=== PATIENT | male | born 1985 | race African-American/Black ===

== ENCOUNTER 2016-11-01 07:52 | Emergency (ER) | payer SELFPAY ==
[2016-11-01] MEDS ORDERED: Morphine INJ* 4 MG/ML 1 ML CARPUJECT IV ONE (08:05)
[2016-11-01] MEDS ORDERED: Ondansetron INJ* 2 MG/ML VIAL IV ONE (08:05)
--- NOTE | 2016-11-01 08:12 | ED ---
Abdominal Pain/Male - HPI Summary HPI Summary: Pt is a 31 yo male presents by EMS with 3 days progressive abd pain, nausea and vomiting. Pt states vomit is green in color. Pt also reports diarrhea "like never before." Pt denies cp, sob, cough. Feels warm, no chills, no rash. No sick contacts. No headache, congestion. No OTC meds taken - History of Current Complaint Chief Complaint: EDAbdPain Stated Complaint: ABD PAIN Time Seen by Provider: 11/01/16 07:54 Hx Obtained From: Patient Onset/Duration: Gradual Onset, Lasting Days Timing: Constant Severity Initially: Moderate Severity Currently: Moderate Pain Intensity: 10 Location: Discrete At: LUQ, Epigastric Radiates: No Character: Cramping Aggravating Factor(s): Food Alleviating Factor(s): Nothing Associated Signs And Symptoms: Positive: Vomiting, Diarrhea. Negative: Fever, Cough, Chest Pain, Urinary Symptoms - Allergies/Home Medications Allergies/Adverse Reactions: Allergies Allergy/AdvReac Type Severity Reaction Status Date / Time Penicillins Allergy Hives Verified 11/01/16 09:43 PMH/Surg Hx/FS Hx/Imm Hx Previously Healthy: Yes Endocrine/Hematology History: Denies: Hx Anticoagulant Therapy Cardiovascular History: Denies: Hx Congenital Heart Disease Respiratory History: Denies: Hx Asthma Musculoskeletal History: Denies: Hx Arthritis Neurological History: Denies: Hx Headaches, Hx Migraine Psychiatric History: Denies: Hx Anxiety, Hx Depression Infectious Disease History: No Infectious Disease History: Denies: Traveled Outside the [place] in Last 30 Days - Family History Known Family History: Positive: Hypertension - Social History Alcohol Use: Occasionally Substance Use Type: Reports: None Smoking Status (MU): Light Every Day Tobacco Smoker Type: Cigarettes Review of Systems Constitutional: Negative Negative: Fever Eyes: Negative ENT: Negative Cardiovascular: Negative Negative: Chest Pain Respiratory: Negative Negative: Shortness Of Breath, Cough Positive: Abdominal Pain, Vomiting, Diarrhea, Nausea Genitourinary: Negative Skin: Negative Neurological: Negative Psychological: Normal All Other Systems Reviewed And Are Negative: Yes Physical Exam Triage Information Reviewed: Yes Vital Signs On Initial Exam: Initial Vitals Temp Pulse Resp BP Pulse Ox 100.9 F 95 20 138/118 100 11/01/16 07:54 11/01/16 07:54 11/01/16 07:54 11/01/16 07:54 11/01/16 07:54 Vital Signs Reviewed: Yes Appearance: Positive: Well-Appearing, No Pain Distress, Well-Nourished Skin: Positive: Warm, Skin Color Reflects Adequate Perfusion, Dry Head/Face: Positive: Normal Head/Face Inspection Eyes: Positive: Normal ENT: Negative: Pharynx normal - mmdry Neck: Positive: Supple, Nontender, No Lymphadenopathy Respiratory/Lung Sounds: Positive: Clear to Auscultation, Breath Sounds Present. Negative: Decreased Breath Sounds, Wheezes Cardiovascular: Positive: Normal, RRR. Negative: Murmur, Rub Abdomen Description: Negative: Nontender - + TTP epigastric, RUQ No guarding, no rebound decreased BS Bowel Sounds: Positive: Present Musculoskeletal: Positive: Normal Neurological: Positive: Normal, Sensory/Motor Intact, Alert, Oriented to Person Place, Time Psychiatric: Positive: Normal AVPU Assessment: Alert - [place] Coma Scale Best Eye Response: 4 - Spontaneous Best Motor Response: 6 - Obeys Commands Best Verbal Response: 5 - Oriented Diagnostics - Vital Signs Vital Signs Temp Pulse Resp BP Pulse Ox 11/01/16 07:54 100.9 F 95 20 138/118 100 - Laboratory Result Diagrams: 11/01/16 08:20 11/01/16 08:20 Lab Statement: Any lab studies that have been ordered have been reviewed, and results considered in the medical decision making process. Re-Evaluation - Re-Evaluation First Eval Re-Evaluation Time: 09:55 Change: Improved - Pt drinking contrast - states nausea improved Second Eval Re-Evaluation Time: 11:00 Change: Improved - Pt with episode of emesis in CT with IV contrast - states feels fine now Pt drank gingerale - requesting d/c Pt requesting cab assisted Will give urgent Rx for phenergan - onofre PCP referral Pt comfortable and in agreement with plan Abdominal Pain Fem Course/Dx - Course Assessment/Plan: Pt presents with 3 days n/v/d. Epigastric and RUQ pain on exam ; oral temp 98.9. Diff: gastroenteritis, gastritis, pancreastitis, dehydration. cbc/cmp/mag/lipase/urine. analgesia, antiemtic. CT ab/pelvis - Diagnoses Provider Diagnoses: Vomiting and diarrhea Discharge - Discharge Plan Condition: Improved Disposition: HOME Prescriptions: Promethazine TAB* [Phenergan TAB*] 12.5 mg PO Q6H PRN #10 tab PRN Reason: Nausea Patient Education Materials: Acute Nausea and Vomiting (ED) Referrals: No Primary Care Phys,NOPCP [Primary Care Provider] - [facility] [place] PHYSICIAN REFERRAL [Outside] Additional Instructions: - For the first 6 hours, eat and drink clears. (water, gatorade, popsicles, jello, soup broth) If you tolerate this, try bland food such as dry toast, scrambled eggs, crackers. Wait 24 hours before eating and drinking spicy food, acidic food, tomato based foods, fried food - Take medication as prescribed for nausea - contact the physician referral center to schedule a follow-up appointment. You may call the referral number, go to urgent care or the emergency with questions or concerns - increased vomiting, fever, chills, uncontrolled pain, other concern
[2016-11-01 08:36] LABS: Hematocrit 39 % (42-52); Hemoglobin 12.5 g/dl (14.0-18.0); Mean Corpuscular HGB Conc 32 g/dl (31-36); Mean Corpuscular Hemoglobin 26 pg (27-31); Mean Corpuscular Volume 81 fL (80-94); Mean Platelet Volume 9 um3 (7.4-10.4); Red Blood Count 4.75 10^6/ul (4.0-5.4); Red Cell Distribution Width 15 % (10.5-15); White Blood Count 11.6 10^3/ul (3.5-10.8)
[2016-11-01 08:58] LABS: Albumin 3.9 g/dL (3.2-5.2); BUN/Creatinine Ratio 10.2 (8-20); Calcium 9.5 mg/dL (8.6-10.3); EGFR African American 131.7 (>60); EGFR Non-African American 102.4 (>60); Globulin 4.1 g/dL (2-4); Magnesium 2.2 mg/dL (1.9-2.7); Potassium 4.1 mmol/L (3.5-5.0); Total Bilirubin 0.4 mg/dL (0.2-1.0)
[2016-11-01] MEDS ORDERED: Famotidine IV * 20 MG in NS 0.9% 100 ML* 100 ML IVPB SCH (09:00)
[2016-11-01] MEDS ORDERED: NS 0.9% 1000 ML* 1,000 ML IV ONE (09:08)
[2016-11-01] MEDS ORDERED: Iohexol 300* (CONTRAST) 10 ML SDV IV ONE (09:42)
--- NOTE | 2016-11-01 10:23 | RAD ---
CLINICAL HISTORY: Abdominal pain, vomiting, fever COMPARISON: None TECHNIQUE: Multiple contiguous axial CT scans were obtained of the abdomen and pelvis after the administration of intravenous contrast. Coronal and sagittal multiplanar reformations are submitted for review. Oral contrast was administered. Delayed images were obtained through the abdomen FINDINGS: LUNG BASES: The lung bases are clear. LIVER: The liver is normal in shape, size, contour, and attenuation. BILE DUCTS: There is no intrahepatic or extrahepatic biliary dilatation. GALLBLADDER: The gallbladder is normal, without pericholecystic inflammatory change. PANCREAS: The pancreas is normal, without mass or ductal dilatation. SPLEEN: Normal in size and appearance. UPPER GI TRACT: Evaluation of the gastrointestinal tract is limited by incomplete gastric distention. The upper GI tract is unremarkable. SMALL BOWEL AND MESENTERY: The small bowel is normal in contour, course, and caliber. There is no obstruction or dilatation. COLON: The colon is normal in contour, course, caliber. There is no pericolonic inflammatory change. ADRENALS: Normal bilaterally. KIDNEYS: The kidneys are normal in shape, size, contour, and axis. There is no hydronephrosis or nephrolithiasis. BLADDER: The bladder is smooth in contour. PELVIC ORGANS: The prostate gland is normal. The seminal vesicles are symmetric. AORTA: The aorta is normal. IVC: Unremarkable LYMPH NODES: There is no lymphadenopathy by size criteria. ABDOMINAL WALL: There is no evidence for abdominal wall hernia. BONES AND SOFT TISSUES: The bones and soft tissues are unremarkable. OTHER: None IMPRESSION: NO ACUTE CT PATHOLOGY OF THE VISUALIZED ABDOMEN OR PELVIS
[2016-11-01 10:31] LABS: Urine Bilirubin Negative (Negative); Urine Glucose Negative (Negative); Urine Nitrite Negative (Negative)
[2016-11-01 11:37] VITALS: BP 130/79
== END 2016-11-01 11:44 | disposition home or self-care (01) ==
LOC: ED 07:52
DX: R11.2 Nausea with vomiting, unspecified (principal); R19.7 Diarrhea, unspecified; F17.210 Nicotine dependence, cigarettes, uncomplicated
CPT/HCPCS: 36415; 74177; 80053; 81003; 83605; 83690; 83735; 85025; 96374; 96375; 99282; J2270; J2405; Q9967

== ENCOUNTER 2017-01-18 01:05 | Emergency (ER) | payer SELFPAY ==
[2017-01-18 01:21] VITALS: BP 134/86
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
--- NOTE | 2017-01-18 07:37 | RAD ---
HISTORY: Right toe pain, trauma COMPARISONS: None VIEWS: 2, Frontal and lateral views of the right foot FINDINGS: BONE DENSITY: Normal. BONES: There is no displaced fracture. JOINTS: There is no arthropathy. ALIGNMENT: There is no dislocation. SOFT TISSUES: Unremarkable. OTHER FINDINGS: None. IMPRESSION: NO ACUTE OSSEOUS INJURY. IF SYMPTOMS PERSIST, RECOMMEND REPEAT IMAGING.
== END 2017-01-18 03:05 | disposition home or self-care (01) ==
LOC: ED 01:05
DX: S90.121A Contusion of right lesser toe(s) without damage to nail, initial encounter (principal); M25.511 Pain in right shoulder; F17.210 Nicotine dependence, cigarettes, uncomplicated; V49.9XXA Car occupant (driver) (passenger) injured in unspecified traffic accident, initial encounter; Y93.9 Activity, unspecified; Y92.9 Unspecified place or not applicable; Y99.9 Unspecified external cause status
CPT/HCPCS: 99283

== ENCOUNTER 2017-09-12 19:21 | Emergency (ER) | payer SELFPAY ==
[2017-09-12 19:32] VITALS: BP 132/74
--- NOTE | 2017-09-12 19:59 | UC ---
Blair Sexton Natalie, scribed for Dayne Stubbs MD on 09/12/17 at 1952 . Dental HPI - HPI Summary HPI Summary: The pt is a 32 y/o M presenting to c/o upper left molar pain starting a few days ago. There is a silver cap on the tooth. The pain is rated 8/10. 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 Pt denies fever and pain in gums or cheek. - History of Current Complaint Chief Complaint: UCGeneralIllness Stated Complaint: TOOTH ACHE Time Seen by Provider: 09/12/17 19:39 Hx Obtained From: Patient Onset/Duration: Sudden Onset, Lasting Days - starting a few days ago, Still Present Severity: Moderate Pain Intensity: 8 Pain Scale Used: 0-10 Numeric Aggravating Factor(s): Nothing Alleviating Factor(s): Nothing - Allergies/Home Medications Allergies/Adverse Reactions: Allergies Allergy/AdvReac Type Severity Reaction Status Date / Time Penicillins Allergy Hives Verified 11/01/16 09:43 Home Medications: Home Medications Ibuprofen [Advil] 800 mg PO 09/12/17 [History] PMH/Surg Hx/FS Hx/Imm Hx Other History Of: Negative For: Anticoagulant Therapy - Surgical History Surgical History: None - Family History Known Family History: Positive: Hypertension Negative: Cardiac Disease - Social History Alcohol Use: Occasionally Substance Use Type: Marijuana Smoking Status (MU): Light Every Day Tobacco Smoker Type: Cigarettes Household Exposure Type: Cigarettes Review of Systems Constitutional: Other - NEGATIVE: fever ENT: Dental Pain - left upper molar, Other - NEGATIVE: pain in gums and cheek All Other Systems Reviewed And Are Negative: Yes Physical Exam Triage Information Reviewed: Yes Appearance: Well-Appearing, No Pain Distress Vital Signs: Initial Vital Signs Temp 98.9 F 09/12/17 19:25 Pulse 96 09/12/17 19:25 Resp 16 09/12/17 19:25 BP 132/74 09/12/17 19:25 Pulse Ox 100 09/12/17 19:25 Vital Signs Reviewed: Yes Eye Exam: Normal ENT: Positive: Normal ENT inspection Dental: Positive: Other: - pain in left upper molar with silver cap Neck: Positive: Supple, Nontender Respiratory: Positive: Other: - CTA, breath sounds present Cardiovascular: Positive: RRR Abdomen Description: Positive: Nontender, Soft Bowel Sounds: Positive: Present Musculoskeletal Exam: Normal Musculoskeletal: Positive: Strength Intact, ROM Intact Neurological: Positive: Other: - normal, sensory/motor intact, A&O x3 Psychological: Positive: Other: - affect/mood appropriate Skin: Positive: Other - warm, color reflects adequate perfusion, dry Dental Complaint Course/Dx - Course Course Of Treatment: Medications reviewed. Allergies noted. - Differential Dx/Diagnosis Provider Diagnoses: toothache Discharge - Discharge Plan Condition: Stable Disposition: HOME Prescriptions: Clindamycin Cap(NF) [Clindamycin Cap 300 mg Cap(NF)] 300 mg PO Q6H #40 cap Clindamycin Cap(NF) [Clindamycin Cap 300 mg Cap(NF)] 300 mg PO Q6H #40 cap oxyCODONE/Acetamin 5/325 MG* [Percocet 5/325 TAB*] 1 tab PO Q4H PRN #30 tab MDD 6 PRN Reason: Pain Patient Education Materials: Toothache (ED) Referrals: [facility] PHYSICIAN REFERRAL [Outside] No Primary Care Phys,NOPCP [Primary Care Provider] - Additional Instructions: FOLLOW UP WITH YOUR DENTIST. GET RECHECKED FOR ANY WORSENING OF YOUR CONDITION OR QUESTIONS OR CONCERNS. The documentation as recorded by the Blair ferreira Natalie accurately reflects the service I personally performed and the decisions made by me, Dayne Stubbs MD.
== END 2017-09-12 19:59 | disposition home or self-care (01) ==
LOC: UCEAST 19:21
DX: K08.89 Other specified disorders of teeth and supporting structures (principal); Z88.0 Allergy status to penicillin; F12.90 Cannabis use, unspecified, uncomplicated; F17.210 Nicotine dependence, cigarettes, uncomplicated
CPT/HCPCS: 99212; G0463

== ENCOUNTER 2019-05-28 19:42 | Emergency (ER) | payer SELFPAY ==
[2019-05-28] MEDS ORDERED: NS 0.9% 1000 ML** 1,000 ML IV ONE (19:46)
--- NOTE | 2019-05-28 20:28 | ED ---
Substance Abuse/Use - HPI Summary HPI Summary: This patient is a 33 year old M presenting to [facility] by EMS with a chief complaint of loss of consciousness prior to arrival. Pt was sniffing what he thought was a line of coke when he lost consciousness. He was to only one to lose consciousness. Bystanders report he was unresponsive and they tried to give him CPR. He was given Narcan by EMS and feels much better. No PMHx of overdose. Pt is currently asymptomatic. Pt usually takes Vivitrol shot, but he didnt have the shot this month. He received it in march and April. Patient denies abdominal pain, nausea, vomiting. Pt has had no surgeries. - History Of Current Complaint Chief Complaint: EDSubstanceAbuse Stated Complaint: OVERDOSE PER EMS Time Seen by Provider: 05/28/19 19:46 Hx Obtained From: Patient Onset/Duration of Drug/ETOH Abuse: Hours Ingestion History: Type/Name Of Drug - Cocaine Overdose Characteristics: Inhalation Timing Of Abuse: Binge Use Severity Currently: None - asymptomatic Aggravating Factor(s): Therapy Non-compliance Alleviating Factor(s): Other - Narcan Associated Signs And Symptoms: Intentional Ingestion, Other: - LOC - Allergies/Home Medications Allergies/Adverse Reactions: Allergies Allergy/AdvReac Type Severity Reaction Status Date / Time MS Penicillins [Penicillins] Allergy Hives Verified 11/01/16 09:43 Home Medications: Home Medications Vivitrol INJ 1 mg INJ MONTHLY 05/28/19 [History Confirmed 05/28/19] PMH/Surg Hx/FS Hx/Imm Hx Endocrine/Hematology History: Denies: Hx Anticoagulant Therapy, Hx Diabetes Cardiovascular History: Denies: Hx Congenital Heart Disease Respiratory History: Denies: Hx Asthma Musculoskeletal History: Denies: Hx Arthritis Neurological History: Denies: Hx Headaches, Hx Migraine Psychiatric History: Denies: Hx Anxiety, Hx Depression - Surgical History Surgical History: None Infectious Disease History: No Infectious Disease History: Denies: Traveled Outside the [place] in Last 30 Days - Family History Known Family History: Positive: Hypertension Negative: Cardiac Disease - Social History Alcohol Use: Occasionally Hx Substance Use: No Substance Use Type: Reports: Marijuana Hx Tobacco Use: Yes Smoking Status (MU): Light Every Day Tobacco Smoker Type: Cigarettes - Additional Comments History Additional Comments: Home Medications Medication Instructions Recorded Confirmed Type Vivitrol INJ 1 mg INJ MONTHLY 05/28/19 05/28/19 History Review of Systems Negative: Fever Negative: Vomiting, Nausea Positive: Syncope All Other Systems Reviewed And Are Negative: Yes Physical Exam - Summary Physical Exam Summary: General: Well-developed, Well-nourished male. No acute distress. HEENT: Normocephalic, Atraumatic. Eyes: Conjuctiva normal, PERRL. Ears: TMs within normal limits. Nares: (-) discharge, (-) erythema. Oropharynx: Clear, mucous membranes moist, (-) exudates. Neck: Soft, FROM, (-) lymphadenopathy, (-) thyromegaly, (-) JVD. Cardiovascular: Normal sinus rhythm, (-) murmur. Lungs: Clear to auscultation bilaterally (-) wheezes, (-) rales, (-) rhonchi. Abdomen: Soft, non-tender, non-distended, (-) organomegaly, normal bowel sounds. Back: (-) CVA tenderness Extremities: No edema. Skin: Warm, dry, (-) rash. Neuro: Alert and oriented x3, no focal deficits. Psychiatric: Mood normal, affect normal. Triage Information Reviewed: Yes Vital Signs On Initial Exam: Initial Vitals Pulse BP Pulse Ox 97 125/83 98 05/28/19 19:48 05/28/19 19:48 05/28/19 19:48 Vital Signs Reviewed: Yes Procedures - Sedation Patient Received Moderate/Deep Sedation with Procedure: No Diagnostics - Vital Signs Vital Signs Temp Pulse Resp BP Pulse Ox 05/28/19 20:18 89 18 131/89 98 05/28/19 20:17 99 F 93 24 76/40 96 05/28/19 20:00 86 9 98 05/28/19 19:49 97.7 F 84 18 125/83 99 05/28/19 19:48 97 125/83 98 - Laboratory Result Diagrams: 05/28/19 20:37 05/28/19 20:37 Lab Statement: Any lab studies that have been ordered have been reviewed, and results considered in the medical decision making process. - EKG 2008 Cardiac Rate: NL - 76 bpm EKG Rhythm: Sinus Rhythm Summary of EKG Findings: EKG at 2008 reveals normal sinus rhythm with rate of 76 BPM, no acute changes, no ischemic changes. Early repol pattern. This EKG was reviewed and interpreted by Dr. Goldsmith. Re-Evaluation - Re-Evaluation First Eval Comment: I have discussed results with the patient and symptoms are resolved. Discussed symptoms that warrant immediate return to ED. Course/Dx - Course Course Of Treatment: This patient is a 33 year old M presenting to [facility] by EMS with a chief complaint of loss of consciousness prior to arrival. Pt was sniffing what he thought was a line of coke when he lost consciousness. He was to only one to lose consciousness. Bystanders report he was unresponsive and they tried to give him CPR. He was given Narcan by EMS and feels much better. No PMHx of overdose. Pt is currently asymptomatic. Pt usually takes Vivitrol shot, but he didnt have the shot this month. He received it in march and April. Patient denies abdominal pain, nausea, vomiting. Pt has had no surgeries. Physical exam findings are nml. Blood work obtained. RDW is 16. UA obtained. Urine opiates screen presumptive positive, Amphetamines presumptive positive, Urine Cocaine screen presumptive positive, U Cannabinoids screen presumptive positive. EKG at 2008 reveals normal sinus rhythm with rate of 76 BPM, no acute changes, no ischemic changes. Early repol pattern. This EKG was reviewed and interpreted by Dr. Goldsmith. Patient will be discharged. The patient is agreeable with this plan. - Diagnoses Provider Diagnoses: Unresponsive, Overdose Discharge ED - Sign-Out/Discharge Documenting (check all that apply): Patient Departure - Discharge - Discharge Plan Condition: Stable Disposition: HOME Patient Education Materials: Opioid Safety (ED) Referrals: [facility] [Outside] - 3 Days Additional Instructions: Please follow up with your primary care physician within three days. Please return to ED for any new or worsening symptoms. - Billing Disposition and Condition Condition: STABLE Disposition: Home - Attestation Statements Document Initiated by Scribe: Yes Documenting Scribe: Ashli Mckeon Provider For Whom Delorisibjosi is Documenting (Include Credential): Octavia Goldsmith MD Scribe Attestation: Ashli Sexton, silverioed for Octavia Goldsmith MD on 05/29/19 at 0149. Scribe Documentation Reviewed: Yes Provider Attestation: The documentation as recorded by the Ashli ferreira accurately reflects the service I personally performed and the decisions made by , Octavia Goldsmith MD Status of Scribe Document: Viewed
[2019-05-28 20:50] LABS: ABS Eosinophils 0.1 10^3/ul (0-0.6); ABS Lymphocytes 1.3 10^3/ul (1.0-4.8); ABS Monocytes 0.4 10^3/ul (0-0.8); ABS Neutrophils 4.8 10^3/ul (1.5-7.7); Hematocrit 45 % (42-52); Hemoglobin 14.9 g/dL (14.0-18.0); Mean Corpuscular HGB Conc 33 g/dL (31-36); Mean Corpuscular Hemoglobin 28 pg (27-31); Mean Corpuscular Volume 84 fL (80-94); Mean Platelet Volume 8.7 fL (7.4-10.4); Nucleated Red Blood Cells % 0.1; Platelet Count 300 10^3/uL (150-450); Red Blood Count 5.32 10^6 /uL (4.18-5.48); Red Cell Distribution Width 16 % (10-15); White Blood Count 6.6 10^3/uL (3.5-10.8)
[2019-05-28 21:09] LABS: Acetaminophen < 15 mcg/mL; Alcohol < 10 mg/dL (<10); Salicylate < 2.50 mg/dL (<30)
[2019-05-28 21:12] LABS: ALT 30 U/L (7-52); AST 29 U/L (13-39); Albumin 4.3 g/dL (3.2-5.2); Albumin/Globulin Ratio 1.2 (1-3); Alkaline Phosphatase 78 U/L (34-104); Anion Gap 6 mmol/L (2-11); BUN/Creatinine Ratio 12.7 (8-20); Blood Urea Nitrogen 15 mg/dL (6-24); CO2 Carbon Dioxide 31 mmol/L (22-32); Calcium 9.5 mg/dL (8.6-10.3); Chloride 102 mmol/L (101-111); EGFR African American 87.1 (>60); Globulin 3.7 g/dL (2-4); Glucose 99 mg/dL (70-100); Potassium 3.6 mmol/L (3.5-5.0); Sodium 139 mmol/L (135-145)
[2019-05-28 21:23] LABS: TSH (Thyroid Stimulating Horm) 1.12 mcIU/mL (0.34-5.60)
[2019-05-28 22:30] LABS: Urine Appearance Cloudy; Urine Bilirubin Negative (Negative); Urine Blood Negative (Negative); Urine Color Yellow; Urine Glucose Negative (Negative); Urine Ketones Trace (Negative); Urine Nitrite Negative (Negative); Urine Protein Negative (Negative); Urine Specific Gravity 1.021 (1.010-1.030); Urine Urobilinogen Negative (Negative)
[2019-05-28 23:10] LABS: Urine Benzodiazepine Screen None Detected (None Detect); Urine Opiates Screen Presumptive Positive (None Detect)
[2019-05-29 01:15] VITALS: BP 141/97
== END 2019-05-28 23:45 | disposition home or self-care (01) ==
LOC: ED 19:42
DX: T40.5X1A Poisoning by cocaine, accidental (unintentional), initial encounter (principal); Y92.9 Unspecified place or not applicable; F17.210 Nicotine dependence, cigarettes, uncomplicated
CPT/HCPCS: 36415; 80053; 80307; 80320; 80329; 81003; 83605; 84443; 84484; 85025; 87040; 93005; 99283; G0480